=== PATIENT | female | born 1955 ===

== ENCOUNTER 2018-03-09 10:41 | Emergency (ER) | payer BC ==
[~2018-03-09] VITALS: Ht 157.5 cm; Wt 66.7 kg
[2018-03-09] MEDS ORDERED: MOBIC15 MG (11:08)
[2018-03-09] MEDS ORDERED: LOSARTAN-HCTZ1 EACH (11:08)
== END 2018-03-09 14:46 | disposition home or self-care (01) ==
LOC: ER 10:41
DX: J06.9 Acute upper respiratory infection, unspecified (principal)